=== PATIENT | female | born 1950 | race Hispanic/Latino ===

== ENCOUNTER 2017-02-13 10:44 | Outpatient (CLI) | payer OTHER | END 2017-02-13 19:01 | disposition home or self-care (01) | LOC: LABW 10:44 | DX: G62.89 Other specified polyneuropathies (principal); M25.512 Pain in left shoulder | CPT/HCPCS: 36415; 82164; 82784; 85651; 86039; 86140; 86255 ==

== ENCOUNTER 2017-08-14 08:31 | Outpatient (CLI) | payer OTHER ==
[2017-08-14 08:55] LABS: PLATELET COUNT 257 K/uL (152-353)
[2017-08-14 09:25] LABS: POTASSIUM 4.2 mmol/L (3.6-5.2)
== END 2017-08-14 19:33 | disposition home or self-care (01) ==
LOC: LABW 08:31
PROVIDERS: Physician Assistant
DX: R63.5 Abnormal weight gain (principal); M25.561 Pain in right knee; M25.562 Pain in left knee; R68.89 Other general symptoms and signs; Z79.899 Other long term (current) drug therapy; Z51.81 Encounter for therapeutic drug level monitoring; D51.8 Other vitamin B12 deficiency anemias; E55.9 Vitamin D deficiency, unspecified
CPT/HCPCS: 36415; 80053; 80061; 82306; 82607; 83036; 83735; 85027; 85651

== ENCOUNTER 2017-08-20 15:56 | Outpatient (CLI) | payer OTHER | END 2017-08-20 22:33 | disposition home or self-care (01) | LOC: LAB 15:56 | DX: R68.89 Other general symptoms and signs (principal); R63.5 Abnormal weight gain | CPT/HCPCS: 84439; 84443 ==

== ENCOUNTER 2019-06-05 15:10 | Outpatient (CLI) | payer OTHER ==
[2019-06-05 15:23] LABS: PLATELET COUNT 230 K/uL (152-353)
[2019-06-05 15:40] LABS: POTASSIUM 4.1 mmol/L (3.6-5.2)
== END 2019-06-05 19:14 | disposition home or self-care (01) ==
LOC: LABW 15:10
PROVIDERS: Internal Medicine
DX: R42 Dizziness and giddiness (principal)
CPT/HCPCS: 36415; 80053; 85027

== ENCOUNTER 2021-05-18 15:42 | Outpatient (CLI) | payer OTHER | END 2021-05-18 19:40 | disposition home or self-care (01) | LOC: RAD 15:42 | PROVIDERS: ATTEND Internal Medicine | DX: R53.83 Other fatigue (principal) ==

== ENCOUNTER 2021-05-19 16:36 | Outpatient (CLI) | payer OTHER ==
[2021-05-19 17:14] LABS: PLATELET COUNT 316 K/uL (152-353)
[2021-05-19 17:34] LABS: POTASSIUM 4.2 mmol/L (3.6-5.2)
== END 2021-05-19 21:15 | disposition home or self-care (01) ==
LOC: LAB 16:36
PROVIDERS: ATTEND Internal Medicine
DX: R53.83 Other fatigue (principal); R79.89 Other specified abnormal findings of blood chemistry
CPT/HCPCS: 80053; 80061; 83540; 83550; 84439; 84443; 85027

== ENCOUNTER 2021-12-15 12:39 | Outpatient (CLI) | payer OTHER ==
[2021-12-15 13:20] LABS: PLATELET COUNT 251 K/uL (152-353)
[2021-12-15 14:11] LABS: POTASSIUM 4.7 mmol/L (3.6-5.2)
== END 2021-12-15 19:33 | disposition home or self-care (01) ==
LOC: LAB 12:39
PROVIDERS: ATTEND Internal Medicine
DX: I10 Essential (primary) hypertension (principal)
CPT/HCPCS: 80053; 80061; 81002; 84439; 84443; 85027